=== PATIENT | male | born 1995 | race Two or more races ===

== ENCOUNTER 2019-04-26 20:59 | Emergency (ER) | payer MEDICAID ==
[~2019-04-26] VITALS: Ht 175.3 cm; Wt 61.2 kg
[2019-04-26 21:13] VITALS: BP 123/73
== END 2019-04-26 21:53 | disposition home or self-care (01) ==
LOC: ER 21:01
DX: K02.9 Dental caries, unspecified (principal); J06.9 Acute upper respiratory infection, unspecified; Z88.0 Allergy status to penicillin; Z88.8 Allergy status to other drugs, medicaments and biological substances